=== PATIENT | female | born 1980 ===

== ENCOUNTER 2019-03-29 09:00 | Inpatient (IN) | payer OTHER ==
--- NOTE | 2019-03-29 10:18 | History and Physical Report ---
History of Present Illness Date of examination: 03/29/19 Date of admission: 03/29/2019 Chief complaint: Presents for a scheduled induction of labor due to Preeclampsia. History of present illness: Early entry to care at [facility], 2nd trimester complicated by +Chlamydia (treated with Negative MARIA ELENA). Third trimester complicated by a abnormal 1hour GTT; followed by a normal 3hour GTT. Third trimester also complicated by elevated BPs and PIH. 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 History: chlamydia Family/Genetic History: diabetes (Mother), hypertension (Father) Social history: no significant social history, - Obstetrical History Expected Date of Delivery: 04/19/19 Actual Gestation: 37 Week(s) 0 Day(s) : 6 Para: 4 Hx # Term Pregnancies: 4 Spontaneous Abortions: 1 Number of Living Children: 4 #1 Gender: Female year: 2,[birth year] Birthweight: 3.175 kg Method of Delivery: Vaginal Gestational age at delivery: 40 Complications: none #2 Infant Gender: Female year: 2,[birth year] Birthweight: 3.856 kg Method of Delivery: Vaginal Gestational age at delivery: 40 Complications: none #3 Gender: Female year: 2,007 Birthweight: 3.175 kg Method of Delivery: Vaginal Gestational age at delivery: 40 #4 Gender: Male year: 2,011 Birthweight: 3.175 kg Method of Delivery: Vaginal Gestational age at delivery: 40 Complications: none Medications and Allergies Active Meds: Active Medications Ephedrine Sulfate (Ephedrine Sulfate) 10 mg IV Q2M PRN PRN Reason: Hypotension Oxytocin/Sodium Chloride (Pitocin/Ns 20 Unit/1000ml Drip) 20 units in 1,000 mls @ 125 mls/hr IV DIRECT KAYLYN Lactated Ringer's (Lactated Ringers) 1,000 mls @ 125 mls/hr IV DIRECT KAYLYN Mineral Oil (Mineral Oil) 30 ml PO QHS PRN PRN Reason: Constipation Naloxone HCl (Naloxone) 0.1 mg IV Q2MIN PRN PRN Reason: Res Rate </= 8 or 02 SAT < 92% Terbutaline Sulfate (Brethine) 0.25 mg SUB-Q ONCE PRN PRN Reason: Hyperstimulation/Hypertonicity Terbutaline Sulfate (Brethine) 0.25 mg IVP ONCE PRN PRN Reason: Hyperstimulation/Hypertonicity Review of Systems All systems: negative Constitutional: other (Denies HAs) Eyes: other (Denies Visual Changes) - Vital Signs Vital signs: Vital Signs Pulse BP 67 141/98 03/29/19 09:36 03/29/19 09:36 Temp Pulse Resp BP Pulse Ox 70 143/99 03/29/19 09:41 03/29/19 09:41 - Physical Exam Breasts: Positive: normal Cardiovascular: Regular rate Lungs: Positive: Clear to auscultation, Normal air movement Abdomen: Positive: normal appearance, soft, normal bowel sounds Genitourinary (Female): Positive: normal external genitalia, normal perenium Vagina: Positive: normal moisture Uterus: Positive: enlarged Anus/Rectum: Positive: normal perianal skin - Obstetrical FHR: category 1 Uterine Contraction Monitor Mode: External Cervical Dilatation: 1 (Vtx, Intact) Cervical Effacement Percentage: 20 station: -3 Uterine Contraction Pattern: Regular Uterine Tone Measurement Phase: Resting Uterine Contraction Intensity: Mild Results All other labs normal. Assessment and Plan A: IUP @ 37 Weeks Preeclampsia AMA Category I Tracing GBS Negative P: Admit to L&D per Routine Orders Magnesium Sulfate PIH Labs Cytotec Induction Consult Dr. Lopez
[2019-03-29] MEDS ORDERED: OXYTOCIN 20 UNIT/1000ML DRIP 20 UNITS/1,000 ML BAG IV SCH (11:00)
[2019-03-29] MEDS ORDERED: LIDOCAINE (2%) 20 MG/1 ML VIAL 20 ML MDV INFILTRATI NR (11:00)
[2019-03-29] MEDS ORDERED: MINERAL OIL 30 ML ORAL LIQD PO PRN (11:00)
[2019-03-29 11:02] LABS: Hematocrit 20.5 % (30.3-42.9); Hemoglobin 6.7 gm/dl (10.1-14.3); Mean Corpuscular HGB Conc 33 % (30-34); Mean Corpuscular Volume 88 fl (79-97); Platelet Count 153 K/mm3 (140-440); Red Blood Count 2.35 M/mm3 (3.65-5.03); Red Cell Distribution Width 14.2 % (13.2-15.2)
[2019-03-29] MEDS ORDERED: MAGNESIUM SULFATE 40GM/1000ML 40 GM/1,000 ML BAG IV ONE (11:15)
[2019-03-29] MEDS: LACTATED RINGERS 1,000 ML IV SCH (11:18)
[2019-03-29 11:25] LABS: Alanine Aminotransferase 82 units/L (7-56); Uric Acid 4.2 mg/dL (3.5-7.6)
[2019-03-29] MEDS ORDERED: MAGNESIUM SULFATE 4 GM/100 ML BAG IV ONE (11:30)
[2019-03-29] MEDS ORDERED: miSOPROStol 25 MCG TAB VG ONE (11:30)
[2019-03-29] MEDS ORDERED: NALOXONE 0.4 MG/1 ML INJ IV PRN (11:30)
[2019-03-29] MEDS ORDERED: TERBUTALINE 1 MG/1 ML INJ IVP PRN (11:30)
[2019-03-29] MEDS ORDERED: ONDANSETRON 4 MG/2 ML INJ IV PRN (11:30)
[2019-03-29] MEDS ORDERED: ePHEDrine SULFATE 50 MG/1 ML INJ IV PRN (11:30)
[2019-03-29] MEDS ORDERED: TERBUTALINE 1 MG/1 ML INJ SUB-Q PRN (11:30)
[2019-03-29] MEDS ORDERED: MAGNESIUM SULFATE 40GM/1000ML 40 GM/1,000 ML BAG IV SCH (12:00)
[2019-03-29] MEDS ORDERED: OXYTOCIN DRIP 30 UNITS/500 ML BAG IV SCH (13:00)
[2019-03-29] MEDS ORDERED: DEXMEDETOMIDINE 200 MCG/2 ML VIAL IV ONE (14:20)
--- NOTE | 2019-03-29 14:26 | Progress Note ---
Assessment and Plan A: IUP @ 37 Weeks Preeclampsia AMA Category I Tracing GBS Negative Severe Anemia P: Repeat CBC Jitendra'camacho Arce Fell out AROM Continue Pitocin Induction Continue MagSO4 Subjective - Subjective Date of service: 03/29/19 Interval history: Early entry to care at [facility], 2nd trimester complicated by +Chlamydia (treated with Negative MARIA ELENA). Third trimester complicated by a abnormal 1hour GTT; followed by a normal 3hour GTT. Third trimester also complicated by elevated BPs and PIH. Patient reports: contractions Objective - Vital Signs Vital Signs: Vital Signs - 12hr 03/29/19 03/29/19 03/29/19 09:36 09:39 09:41 Pulse Rate 67 68 70 Blood Pressure 141/98 140/94 143/99 O2 Sat by Pulse Oximetry 03/29/19 03/29/19 03/29/19 10:58 11:13 11:27 Pulse Rate 81 74 74 Blood Pressure 171/101 150/97 144/97 O2 Sat by Pulse Oximetry 03/29/19 03/29/19 03/29/19 11:40 11:41 11:45 Pulse Rate 88 80 85 Blood Pressure 148/111 151/88 148/93 O2 Sat by Pulse Oximetry 03/29/19 03/29/19 03/29/19 11:50 11:55 12:00 Pulse Rate 78 85 84 Blood Pressure 142/92 143/92 137/84 O2 Sat by Pulse Oximetry 03/29/19 03/29/19 03/29/19 12:06 12:10 12:15 Pulse Rate 80 79 85 Blood Pressure 144/84 135/84 145/92 O2 Sat by Pulse Oximetry 03/29/19 03/29/19 03/29/19 12:20 12:25 12:30 Pulse Rate 77 75 77 Blood Pressure 141/82 139/88 125/84 O2 Sat by Pulse Oximetry 03/29/19 03/29/19 03/29/19 12:35 12:40 12:45 Pulse Rate 70 80 71 Blood Pressure 136/89 146/93 136/86 O2 Sat by Pulse Oximetry 03/29/19 03/29/19 03/29/19 12:50 12:57 13:00 Pulse Rate 71 78 72 Blood Pressure 128/85 147/92 144/95 O2 Sat by Pulse Oximetry 03/29/19 03/29/19 03/29/19 13:05 13:11 13:15 Pulse Rate 73 76 76 Blood Pressure 137/89 139/86 139/90 O2 Sat by Pulse Oximetry 03/29/19 03/29/19 03/29/19 13:20 13:27 13:31 Pulse Rate 78 78 80 Blood Pressure 154/92 146/92 142/91 O2 Sat by Pulse Oximetry 03/29/19 03/29/19 03/29/19 13:35 13:40 13:46 Pulse Rate 77 73 92 H Blood Pressure 145/94 140/92 153/91 O2 Sat by Pulse Oximetry 03/29/19 03/29/19 03/29/19 13:52 13:55 14:00 Pulse Rate 85 78 74 Blood Pressure 150/92 O2 Sat by Pulse 98 98 Oximetry 03/29/19 03/29/19 03/29/19 14:05 14:10 14:15 Pulse Rate 86 77 79 Blood Pressure O2 Sat by Pulse 98 98 98 Oximetry 03/29/19 14:20 Pulse Rate 91 H Blood Pressure O2 Sat by Pulse 99 Oximetry - Exam Breasts: normal Cardiovascular: Regular rate Lungs: Clear to auscultation, Normal air movement Abdomen: Present: normal appearance, soft, normal bowel sounds Uterus: Present: normal, firm, fundal height above umbilicus FHR: category 1 Uterine Contraction Monitor Mode: External Cervical Dilatation: 4 (Moderate amount of clear fluid upon AROM at 1350) Cervical Effacement Percentage: 60 station: -2 Uterine Contraction Pattern: Regular Uterine Tone Measurement Phase: Resting Uterine Contraction Intensity: Moderate Extremities: normal - Labs Labs: Abnormal Labs 03/29/19 03/29/19 10:40 10:40 RBC 2.35 L Hgb 6.7 L Hct 20.5 L Creatinine 0.4 L AST 46 H ALT 82 H Lactate Dehydrogenase 228 H Laboratory Results - last 24 hr 03/29/19 03/29/19 03/29/19 10:40 10:40 10:40 WBC 8.9 RBC 2.35 L Hgb 6.7 L Hct 20.5 L MCV 88 MCH 29 MCHC 33 RDW 14.2 Plt Count 153 Creatinine 0.4 L Estimated GFR > 60 Uric Acid 4.2 AST 46 H ALT 82 H Lactate Dehydrogenase 228 H Blood Type B POSITIVE Antibody Screen Negative
[2019-03-29 16:08] LABS: Basophils % (Auto) 0.7 % (0.0-1.8); Eosinophils % (Auto) 0.7 % (0.0-4.3); Hematocrit 33.6 % (30.3-42.9); Hemoglobin 11.3 gm/dl (10.1-14.3); Lymphocytes # (Auto) 1.4 K/mm3 (1.2-5.4); Mean Corpuscular HGB Conc 34 % (30-34); Mean Corpuscular Volume 87 fl (79-97); Monocytes # (Auto) 0.3 K/mm3 (0.0-0.8); Monocytes % (Auto) 4.8 % (0.0-7.3); Platelet Count 118 K/mm3 (140-440); Red Blood Count 3.87 M/mm3 (3.65-5.03); Red Cell Distribution Width 14.4 % (13.2-15.2)
[2019-03-29] MEDS: MAGNESIUM SULFATE 40GM/1000ML 40 GM/1,000 ML BAG IV SCH (19:00)
[2019-03-29] MEDS ORDERED: fentaNYL 100 MCG/2 ML INJ ONE (19:05)
[2019-03-29] MEDS ORDERED: fentaNYL 100 MCG/2 ML INJ IV ONE (19:05)
--- NOTE | 2019-03-29 19:20 | Progress Note ---
Assessment and Plan A: IUP @ 37 Weeks Preeclampsia AMA Category I Tracing GBS Negative P: IUPC placed Continue Pitocin Augmentation Continue MagSO4 Prepare for Epidural Anesthesia Subjective - Subjective Date of service: 03/29/19 Interval history: Early entry to care at [facility], 2nd trimester complicated by +Chlamydia (treated with Negative MARIA ELENA). Third trimester complicated by a abnormal 1hour GTT; followed by a normal 3hour GTT. Third trimester also complicated by elevated BPs and PIH. Patient reports: movement normal, contractions, other (Requesting Epidural Anesthesia) Objective - Vital Signs Vital Signs: Vital Signs - 12hr 03/29/19 03/29/19 03/29/19 09:36 09:39 09:41 Temperature Pulse Rate 67 68 70 Respiratory Rate Blood Pressure 141/98 140/94 143/99 Blood Pressure [Right] O2 Sat by Pulse Oximetry 03/29/19 03/29/19 03/29/19 10:58 11:13 11:27 Temperature Pulse Rate 81 74 74 Respiratory Rate Blood Pressure 171/101 150/97 144/97 Blood Pressure [Right] O2 Sat by Pulse Oximetry 03/29/19 03/29/19 03/29/19 11:40 11:41 11:45 Temperature Pulse Rate 88 80 85 Respiratory Rate Blood Pressure 148/111 151/88 148/93 Blood Pressure [Right] O2 Sat by Pulse Oximetry 03/29/19 03/29/19 03/29/19 11:50 11:55 12:00 Temperature Pulse Rate 78 85 84 Respiratory Rate Blood Pressure 142/92 143/92 137/84 Blood Pressure [Right] O2 Sat by Pulse Oximetry 03/29/19 03/29/19 03/29/19 12:06 12:10 12:15 Temperature Pulse Rate 80 79 85 Respiratory Rate Blood Pressure 144/84 135/84 145/92 Blood Pressure [Right] O2 Sat by Pulse Oximetry 03/29/19 03/29/19 03/29/19 12:20 12:25 12:30 Temperature Pulse Rate 77 75 77 Respiratory Rate Blood Pressure 141/82 139/88 125/84 Blood Pressure [Right] O2 Sat by Pulse Oximetry 03/29/19 03/29/19 03/29/19 12:35 12:40 12:45 Temperature Pulse Rate 70 80 71 Respiratory Rate Blood Pressure 136/89 146/93 136/86 Blood Pressure [Right] O2 Sat by Pulse Oximetry 03/29/19 03/29/19 03/29/19 12:50 12:57 13:00 Temperature Pulse Rate 71 78 72 Respiratory Rate Blood Pressure 128/85 147/92 144/95 Blood Pressure [Right] O2 Sat by Pulse Oximetry 03/29/19 03/29/19 03/29/19 13:05 13:11 13:15 Temperature Pulse Rate 73 76 76 Respiratory Rate Blood Pressure 137/89 139/86 139/90 Blood Pressure [Right] O2 Sat by Pulse Oximetry 03/29/19 03/29/19 03/29/19 13:20 13:27 13:30 Temperature 98.7 F Pulse Rate 78 78 Respiratory Rate Blood Pressure 154/92 146/92 Blood Pressure [Right] O2 Sat by Pulse Oximetry 03/29/19 03/29/19 03/29/19 13:31 13:35 13:40 Temperature Pulse Rate 80 77 73 Respiratory Rate Blood Pressure 142/91 145/94 140/92 Blood Pressure [Right] O2 Sat by Pulse Oximetry 03/29/19 03/29/19 03/29/19 13:46 13:52 13:55 Temperature Pulse Rate 92 H 85 78 Respiratory Rate Blood Pressure 153/91 150/92 Blood Pressure [Right] O2 Sat by Pulse 98 Oximetry 03/29/19 03/29/19 03/29/19 14:00 14:05 14:10 Temperature Pulse Rate 74 86 77 Respiratory Rate Blood Pressure Blood Pressure [Right] O2 Sat by Pulse 98 98 98 Oximetry 03/29/19 03/29/19 03/29/19 14:15 14:20 14:23 Temperature Pulse Rate 79 91 H 81 Respiratory Rate Blood Pressure 129/89 Blood Pressure [Right] O2 Sat by Pulse 98 99 Oximetry 03/29/19 03/29/19 03/29/19 14:25 14:30 14:35 Temperature Pulse Rate 77 78 77 Respiratory Rate Blood Pressure Blood Pressure [Right] O2 Sat by Pulse 98 98 98 Oximetry 03/29/19 03/29/19 03/29/19 14:40 14:45 14:50 Temperature Pulse Rate 79 77 78 Respiratory Rate Blood Pressure Blood Pressure [Right] O2 Sat by Pulse 98 99 98 Oximetry 03/29/19 03/29/19 03/29/19 14:52 14:55 15:00 Temperature Pulse Rate 75 77 79 Respiratory Rate Blood Pressure 140/89 Blood Pressure [Right] O2 Sat by Pulse 99 99 Oximetry 03/29/19 03/29/19 03/29/19 15:05 15:10 15:15 Temperature Pulse Rate 73 74 72 Respiratory Rate Blood Pressure Blood Pressure [Right] O2 Sat by Pulse 97 98 98 Oximetry 03/29/19 03/29/19 03/29/19 15:20 15:23 15:25 Temperature Pulse Rate 81 72 74 Respiratory Rate Blood Pressure 130/78 Blood Pressure [Right] O2 Sat by Pulse 99 98 Oximetry 03/29/19 03/29/19 03/29/19 15:30 15:35 15:40 Temperature Pulse Rate 77 75 71 Respiratory Rate Blood Pressure Blood Pressure [Right] O2 Sat by Pulse 98 98 98 Oximetry 03/29/19 03/29/19 03/29/19 15:45 15:50 15:53 Temperature Pulse Rate 87 73 73 Respiratory Rate Blood Pressure 121/79 Blood Pressure [Right] O2 Sat by Pulse 99 96 94 Oximetry 03/29/19 03/29/19 03/29/19 15:55 16:00 16:05 Temperature Pulse Rate 71 76 84 Respiratory Rate Blood Pressure Blood Pressure [Right] O2 Sat by Pulse 98 97 98 Oximetry 03/29/19 03/29/19 03/29/19 16:10 16:15 16:20 Temperature Pulse Rate 84 79 67 Respiratory Rate Blood Pressure Blood Pressure [Right] O2 Sat by Pulse 97 98 98 Oximetry 03/29/19 03/29/19 03/29/19 16:21 16:22 16:25 Temperature Pulse Rate 69 69 72 Respiratory Rate Blood Pressure 122/76 Blood Pressure [Right] O2 Sat by Pulse 94 96 Oximetry 03/29/19 03/29/19 03/29/19 16:30 16:35 16:40 Temperature Pulse Rate 79 73 76 Respiratory Rate Blood Pressure Blood Pressure [Right] O2 Sat by Pulse 96 97 95 Oximetry 03/29/19 03/29/19 03/29/19 16:45 16:50 16:52 Temperature Pulse Rate 69 86 65 Respiratory Rate Blood Pressure 112/72 Blood Pressure [Right] O2 Sat by Pulse 98 99 94 Oximetry 03/29/19 03/29/19 03/29/19 16:55 17:00 17:05 Temperature Pulse Rate 69 80 74 Respiratory Rate Blood Pressure Blood Pressure [Right] O2 Sat by Pulse 97 97 97 Oximetry 03/29/19 03/29/19 03/29/19 17:10 17:15 17:20 Temperature Pulse Rate 77 81 82 Respiratory Rate Blood Pressure Blood Pressure [Right] O2 Sat by Pulse 98 97 98 Oximetry 03/29/19 03/29/19 03/29/19 17:22 17:23 17:25 Temperature Pulse Rate 71 77 75 Respiratory Rate Blood Pressure 121/75 Blood Pressure [Right] O2 Sat by Pulse 92 96 Oximetry 03/29/19 03/29/19 03/29/19 17:30 17:33 17:34 Temperature 98.0 F Pulse Rate 76 75 72 Respiratory 18 Rate Blood Pressure 117/72 Blood Pressure 117/72 [Right] O2 Sat by Pulse 97 98 Oximetry 03/29/19 03/29/19 03/29/19 17:35 17:40 17:45 Temperature Pulse Rate 77 90 75 Respiratory Rate Blood Pressure Blood Pressure [Right] O2 Sat by Pulse 97 98 98 Oximetry 03/29/19 03/29/19 03/29/19 17:50 17:52 17:55 Temperature Pulse Rate 79 69 77 Respiratory Rate Blood Pressure 118/77 Blood Pressure [Right] O2 Sat by Pulse 97 96 Oximetry 03/29/19 03/29/19 03/29/19 18:00 18:05 18:10 Temperature Pulse Rate 75 74 82 Respiratory Rate Blood Pressure Blood Pressure [Right] O2 Sat by Pulse 97 96 98 Oximetry 03/29/19 03/29/19 03/29/19 18:15 18:20 18:23 Temperature Pulse Rate 83 74 76 Respiratory Rate Blood Pressure 125/80 Blood Pressure [Right] O2 Sat by Pulse 97 97 93 Oximetry 03/29/19 03/29/19 03/29/19 18:25 18:30 18:35 Temperature Pulse Rate 82 77 75 Respiratory Rate Blood Pressure Blood Pressure [Right] O2 Sat by Pulse 98 96 96 Oximetry 03/29/19 03/29/19 03/29/19 18:40 18:42 18:45 Temperature Pulse Rate 86 77 79 Respiratory Rate Blood Pressure Blood Pressure [Right] O2 Sat by Pulse 98 90 98 Oximetry 03/29/19 03/29/19 03/29/19 18:50 18:52 18:55 Temperature Pulse Rate 80 87 85 Respiratory Rate Blood Pressure 137/88 Blood Pressure [Right] O2 Sat by Pulse 87 100 Oximetry 03/29/19 03/29/19 03/29/19 19:00 19:05 19:10 Temperature Pulse Rate 85 82 82 Respiratory Rate Blood Pressure Blood Pressure [Right] O2 Sat by Pulse 97 97 98 Oximetry 03/29/19 03/29/19 19:12 19:15 Temperature Pulse Rate 76 85 Respiratory Rate Blood Pressure Blood Pressure [Right] O2 Sat by Pulse 94 92 Oximetry - Exam Breasts: normal Cardiovascular: Regular rate Lungs: Clear to auscultation, Normal air movement Abdomen: Present: normal appearance, soft, normal bowel sounds Uterus: Present: normal, firm, fundal height above umbilicus FHR: category 1 Uterine Contraction Monitor Mode: Internal Cervical Dilatation: 7 (leaking a moderate amount of clear fluid) Cervical Effacement Percentage: 80 station: -1 Uterine Contraction Pattern: Regular Uterine Tone Measurement Phase: Resting Uterine Contraction Intensity: Strong/Firm Extremities: normal - Labs Labs: Abnormal Labs 03/29/19 03/29/19 03/29/19 10:40 10:40 15:24 RBC 2.35 L Hgb 6.7 L Hct 20.5 L Plt Count 118 L Seg Neutrophils % 71.8 H Creatinine 0.4 L AST 46 H ALT 82 H Lactate Dehydrogenase 228 H Laboratory Results - last 24 hr 03/29/19 03/29/19 03/29/19 10:40 10:40 10:40 WBC 8.9 RBC 2.35 L Hgb 6.7 L Hct 20.5 L MCV 88 MCH 29 MCHC 33 RDW 14.2 Plt Count 153 Lymph % (Auto) [place] % (Auto) Eos % (Auto) Baso % (Auto) Lymph # [place] # Eos # Baso # Seg Neutrophils % Seg Neutrophils # Creatinine 0.4 L Estimated GFR > 60 Uric Acid 4.2 AST 46 H ALT 82 H Lactate Dehydrogenase 228 H Blood Type B POSITIVE Antibody Screen Negative 03/29/19 15:24 WBC 6.5 RBC 3.87 Hgb 11.3 D Hct 33.6 D MCV 87 MCH 29 MCHC 34 RDW 14.4 Plt Count 118 L Lymph % (Auto) 22.0 [place] % (Auto) 4.8 Eos % (Auto) 0.7 Baso % (Auto) 0.7 Lymph # 1.4 [place] # 0.3 Eos # 0.0 Baso # 0.0 Seg Neutrophils % 71.8 H Seg Neutrophils # 4.7 Creatinine Estimated GFR Uric Acid AST ALT Lactate Dehydrogenase Blood Type Antibody Screen
--- NOTE | 2019-03-29 20:11 | Anesthesia Consultation ---
Anesthesia Consult and Med Hx Date of service: 03/29/19 - Airway Anesthetic Teeth Evaluation: Good ROM Head & Neck: Adequate Mental/Hyoid Distance: Adequate Mallampati Class: Class II Intubation Access Assessment: Probably Good - Pulmonary Exam CTA: Yes - Cardiac Exam Cardiac Exam: RRR - Pre-Operative Health Status ASA Pre-Surgery Classification: ASA3 Proposed Anesthetic Plan: Epidural - Pulmonary Hx Smoking: No Hx Asthma: No Hx Respiratory Symptoms: No SOB: No COPD: No Home Oxygen Therapy: No Hx Pneumonia: No Hx Sleep Apnea: No - Cardiovascular System Hx Hypertension: Yes (PIH) Hx Coronary Artery Disease: No Hx Heart Attack/AMI: No Hx Angina: No Hx Percutaneous Transluminal Coronary Angioplasty (PTCA): No Hx Cardia Arrhythmia: No Hx Pacemaker: No Hx Internal Defibrillator: No Hx Valvular Heart Disease: No Hx Heart Murmur: No Hx Peripheral Vascular Disease: No - Central Nervous System Hx Neuromuscular Disorder: No Hx Seizures: No CVA: No Hx Back Pain: No Hx Psychiatric Problems: No - Gastrointestinal Hx Ulcer: No Hx Gastroesophageal Reflux Disease: No - Endocrine Hx Renal Disease: No Hx End Stage Renal Disease: No Hx Cirrhosis: No Hx Liver Disease: No Hx Insulin Dependent Diabetes: No Hx Non-Insulin Dependent Diabetes: No Hx Thyroid Disease: No Hx Hypothyroidism: No Hx Hyperthyroidism: No - Hematic Hx Anemia: No Hx Sickle Cell Disease: No - Other Systems Hx Alcohol Use: No Hx Substance Use: No Hx Cancer: No Hx Obesity: Yes (BMI 31.1) - Additional Comments Anesthesia Medical History Comments: PSH: DENIES
[2019-03-29 20:13] LABS: Hematocrit 35.7 % (30.3-42.9); Hemoglobin 11.6 gm/dl (10.1-14.3); Mean Corpuscular HGB Conc 33 % (30-34); Mean Corpuscular Volume 87 fl (79-97); Platelet Count 119 K/mm3 (140-440); Red Blood Count 4.09 M/mm3 (3.65-5.03); Red Cell Distribution Width 14.7 % (13.2-15.2)
[2019-03-29] MEDS ORDERED: LANOLIN/ZINC/DIMETHICONE (LANSINOH) 7 GM TP PRN (20:13)
[2019-03-29] MEDS ORDERED: diphenhydrAMINE 25 MG CAP PO PRN (20:13)
--- NOTE | 2019-03-29 20:23 | Procedure Note ---
OB Delivery Note - Delivery Date of Delivery: 03/29/19 (1944) Surgeon: KATEY CUTLER Estimated blood loss: 200cc - Vaginal Delivery presentation: vertex Delivery position: OA Intrapartum events: preeclampsia Delivery induction: other (Cook's Cervical Ripening Balloon) Delivery augmentation: pitocin Delivery monitor: external FHT, internal uterine Route of delivery: Delivery placenta: spontaneous Delivery cord: 3 umbilical vessels Episiotomy: none Delivery laceration: 1st degree Delivery repair: vicryl Anesthesia: local Delivery comments: of a live 6'11 male infant over a first degree perineal laceration under IV pain control with Apgars of 8 and 9 at 1946 on 03/29/2019. Infant directly to maternal abd/chest, skin to skin contact. Spontaneous delivery of placenta complete and intact with Pena side presenting at 1946. Fundus is firm and midline located 4 below the U. Lochia is scant. Perineal laceration repaired with 2-0 Vicryl on a SH under local 2% Lidocaine. Delayed cord clamping and cutting; Cord cut by Father of the Baby. Placenta discarded. To Continue MagSO4 x 24 hours. - A at 1 minute: 8 at 5 minutes: 9 Gender: Male (6'11)
[2019-03-29] MEDS: HYDROcodone/ACETAMINOPHEN 5-325 MG TAB PO PRN (20:35)
[2019-03-29] MEDS ORDERED: IBUPROFEN 600 MG TAB PO SCH (21:00)
[2019-03-30] MEDS: HYDROcodone/ACETAMINOPHEN 5-325 MG TAB PO PRN (02:07)
[2019-03-30] MEDS: LACTATED RINGERS 1,000 ML IV SCH (07:05)
[2019-03-30] MEDS: MAGNESIUM SULFATE 40GM/1000ML 40 GM/1,000 ML BAG IV SCH (07:06)
[2019-03-30 07:36] LABS: Bacteria,Urine 1+ /HPF (Negative); Bilirubin,Urine NEG (Negative); Blood,Urine NEG (Negative); Color,Urine Yellow (Yellow); Urobilinogen,Urine < 2.0 mg/dL (<2.0)
[2019-03-30 08:44] LABS: Hematocrit 33.4 % (30.3-42.9)
--- NOTE | 2019-03-30 10:46 | Progress Note ---
Assessment and Plan A: PP Day #1 Preeclampsia P: Follow Routine Orders Continue MagSO4 until 24 hours Postpatum Routine Magnesium Precautions Subjective - Subjective Date of service: 03/30/19 Interval history: Early entry to care at [facility], 2nd trimester complicated by +Chlamydia (treated with Negative MARIA ELENA). Third trimester complicated by a abnormal 1hour GTT; followed by a normal 3hour GTT. Third trimester also complicated by elevated BPs and PIH. Patient reports: appetite normal, voiding normally (Cro[place] in Place), pain well controlled, other (MagSO4 is taking her feel a little dizzy) [place]: doing well, bottle feeding Objective - Vital Signs Latest vital signs: Vital Signs Temp Pulse Resp BP BP Pulse Ox 03/30/19 10:42 76 98 03/30/19 10:41 71 114/76 03/30/19 10:37 71 99 03/30/19 10:30 74 98 03/30/19 10:25 73 96 03/30/19 10:20 72 98 03/30/19 10:15 70 97 03/30/19 10:11 63 116/75 03/30/19 10:10 67 97 03/30/19 10:05 64 98 03/30/19 10:00 65 97 03/30/19 09:55 69 97 03/30/19 09:50 68 97 03/30/19 09:45 76 98 03/30/19 09:41 82 129/90 03/30/19 09:40 77 98 03/30/19 09:35 74 99 03/30/19 09:30 70 98 03/30/19 09:25 69 98 03/30/19 09:23 57 L 79 L 03/30/19 09:19 66 98 03/30/19 09:14 66 97 03/30/19 09:09 74 99 03/30/19 09:04 84 98 03/30/19 08:59 82 98 03/30/19 08:54 78 98 03/30/19 08:49 68 98 03/30/19 08:44 64 98 03/30/19 08:41 62 104/68 03/30/19 08:39 72 98 03/30/19 08:34 73 99 03/30/19 08:29 69 99 03/30/19 08:24 67 98 03/30/19 08:19 66 99 03/30/19 08:14 68 98 03/30/19 08:11 66 129/87 03/30/19 08:09 71 99 03/30/19 08:04 69 99 03/30/19 07:59 73 98 03/30/19 07:54 69 98 03/30/19 07:49 69 99 03/30/19 07:43 74 99 03/30/19 07:39 72 138/93 03/30/19 07:38 74 99 03/30/19 07:33 73 99 03/30/19 07:28 77 99 03/30/19 07:25 77 145/93 03/30/19 07:24 75 99 03/30/19 07:18 69 98 03/30/19 07:13 66 98 03/30/19 07:10 65 120/80 03/30/19 07:08 67 98 03/30/19 07:06 68 119/81 03/30/19 07:04 70 120/80 03/30/19 07:03 68 120/80 98 03/30/19 03:07 67 119/81 97 03/30/19 02:07 18 03/30/19 01:51 98.2 F 77 18 134/81 96 03/30/19 01:50 82 134/81 96 03/29/19 22:10 76 138/85 03/29/19 21:55 70 147/87 03/29/19 21:40 80 160/91 03/29/19 21:35 18 03/29/19 21:25 72 128/75 03/29/19 21:10 81 141/78 03/29/19 20:55 79 146/99 03/29/19 20:41 84 153/97 03/29/19 20:40 88 153/94 03/29/19 20:35 18 03/29/19 20:25 81 134/88 03/29/19 20:10 86 127/85 03/29/19 20:08 20 03/29/19 19:52 91 H 127/83 03/29/19 19:46 81 98 03/29/19 19:41 78 98 03/29/19 19:36 86 97 03/29/19 19:30 88 98 03/29/19 19:25 83 98 03/29/19 19:22 75 139/85 03/29/19 19:20 86 97 03/29/19 19:15 85 92 03/29/19 19:12 76 94 03/29/19 19:10 82 98 03/29/19 19:05 82 97 03/29/19 19:00 85 97 03/29/19 18:55 85 100 03/29/19 18:52 87 137/88 03/29/19 18:50 80 87 03/29/19 18:45 79 98 03/29/19 18:42 77 90 03/29/19 18:40 86 98 03/29/19 18:35 75 96 03/29/19 18:30 77 96 03/29/19 18:25 82 98 03/29/19 18:23 76 125/80 93 03/29/19 18:20 74 97 03/29/19 18:15 83 97 03/29/19 18:10 82 98 03/29/19 18:05 74 96 03/29/19 18:00 75 97 03/29/19 17:55 77 96 03/29/19 17:52 69 118/77 03/29/19 17:50 79 97 03/29/19 17:45 75 98 03/29/19 17:40 90 98 03/29/19 17:35 77 97 03/29/19 17:34 72 117/72 03/29/19 17:33 98.0 F 75 18 117/72 98 03/29/19 17:30 76 97 03/29/19 17:25 75 96 03/29/19 17:23 77 92 03/29/19 17:22 71 121/75 03/29/19 17:20 82 98 03/29/19 17:15 81 97 03/29/19 17:10 77 98 03/29/19 17:05 74 97 03/29/19 17:00 80 97 03/29/19 16:55 69 97 03/29/19 16:52 65 112/72 94 03/29/19 16:50 86 99 03/29/19 16:45 69 98 03/29/19 16:40 76 95 03/29/19 16:35 73 97 03/29/19 16:30 79 96 03/29/19 16:25 72 96 03/29/19 16:22 69 122/76 12/11/19 16:21 69 94 03/29/19 16:20 67 98 03/29/19 16:15 79 98 03/29/19 16:10 84 97 03/29/19 16:05 84 98 03/29/19 16:00 76 97 03/29/19 15:55 71 98 03/29/19 15:53 73 121/79 94 03/29/19 15:50 73 96 03/29/19 15:45 87 99 03/29/19 15:40 71 98 03/29/19 15:35 75 98 03/29/19 15:30 77 98 03/29/19 15:25 74 98 03/29/19 15:23 72 130/78 03/29/19 15:20 81 99 03/29/19 15:15 72 98 03/29/19 15:10 74 98 03/29/19 15:05 73 97 03/29/19 15:00 79 99 03/29/19 14:55 77 99 03/29/19 14:52 75 140/89 03/29/19 14:50 78 98 03/29/19 14:45 77 99 03/29/19 14:40 79 98 03/29/19 14:35 77 98 03/29/19 14:30 78 98 03/29/19 14:25 77 98 03/29/19 14:23 81 129/89 03/29/19 14:20 91 H 99 03/29/19 14:15 79 98 03/29/19 14:10 77 98 03/29/19 14:05 86 98 03/29/19 14:00 74 98 03/29/19 13:55 78 98 03/29/19 13:52 85 150/92 03/29/19 13:46 92 H 153/91 03/29/19 13:40 73 140/92 03/29/19 13:35 77 145/94 03/29/19 13:31 80 142/91 03/29/19 13:30 98.7 F 03/29/19 13:27 78 146/92 03/29/19 13:20 78 154/92 03/29/19 13:15 76 139/90 03/29/19 13:11 76 139/86 03/29/19 13:05 73 137/89 03/29/19 13:00 72 144/95 03/29/19 12:57 78 147/92 03/29/19 12:50 71 128/85 03/29/19 12:45 71 136/86 03/29/19 12:40 80 146/93 03/29/19 12:35 70 136/89 03/29/19 12:30 77 125/84 03/29/19 12:25 75 139/88 03/29/19 12:20 77 141/82 03/29/19 12:15 85 145/92 03/29/19 12:10 79 135/84 03/29/19 12:06 80 144/84 03/29/19 12:00 84 137/84 03/29/19 11:55 85 143/92 03/29/19 11:50 78 142/92 03/29/19 11:45 85 148/93 03/29/19 11:41 80 151/88 03/29/19 11:40 88 148/111 03/29/19 11:27 74 144/97 03/29/19 11:13 74 150/97 03/29/19 10:58 81 171/101 Intake and Output 03/29/19 03/30/19 03/30/19 22:59 06:59 14:59 Intake Total 1000 605 Output Total 650 1350 900 Balance 350 -1350 -295 Intake: IV 1000 605 Lactated Ringers 1,000 ml 1000 @ 125 mls/hr IV DIRECT KAYLYN Rx#:[id number] MAGNESIUM SULFATE 40GM/ 605 1000ML 40 gm In 1,000 ml @ 2 GM/HR 50 mls/hr IV DIRECT KAYLYN Rx#:[id number] Output: Urine 650 1350 900 Indwelling Catheter 650 1350 900 Other: Total, Output Amount 650 400 900 - Exam Breasts: Present: normal Cardiovascular: Present: Regular rate Lungs: Present: Clear to auscultation, Normal air movement Abdomen: Present: normal appearance, soft, normal bowel sounds Uterus: Present: normal, firm, fundal height below umbilicus Extremities: Present: normal - Labs Labs: Abnormal lab results 03/29/19 03/29/19 03/29/19 Range/Units 10:40 10:40 15:24 WBC (4.5-11.0) K/mm3 RBC 2.35 L (3.65-5.03) M/mm3 Hgb 6.7 L (10.1-14.3) gm/dl Hct 20.5 L (30.3-42.9) % Plt Count 118 L (140-440) K/mm3 Seg Neutrophils % 71.8 H (40.0-70.0) % Creatinine 0.4 L (0.7-1.2) mg/dL Magnesium (1.7-2.3) mg/dL AST 46 H (5-40) units/L ALT 82 H (7-56) units/L Lactate Dehydrogenase 228 H (91-180) units/L 03/29/19 03/30/19 Range/Units 19:35 09:37 WBC 13.6 H (4.5-11.0) K/mm3 RBC (3.65-5.03) M/mm3 Hgb (10.1-14.3) gm/dl Hct (30.3-42.9) % Plt Count 119 L (140-440) K/mm3 Seg Neutrophils % (40.0-70.0) % Creatinine (0.7-1.2) mg/dL Magnesium 6.10 H (1.7-2.3) mg/dL AST (5-40) units/L ALT (7-56) units/L Lactate Dehydrogenase (91-180) units/L
[2019-03-30] MEDS: PRENATAL VIT27-FE FUMARATE-FOLIC ACID VIT TAB PO SCH (11:00)
[2019-03-30] MEDS ORDERED: MEASLES, MUMPS & RUBELLA 12,500 UNIT/0.5 ML VACCINE SUB-Q ONE (20:13)
[2019-03-31] MEDS: HYDROcodone/ACETAMINOPHEN 5-325 MG TAB PO PRN ×2 (00:28→12:28)
[2019-03-31] MEDS ORDERED: TETANUS,DIPH,PERTUSS(ACELL) VACCINE 0.5 ML SYRINGE IM ONE (06:00)
[2019-03-31] MEDS: PRENATAL VIT27-FE FUMARATE-FOLIC ACID VIT TAB PO SCH (10:20)
--- NOTE | 2019-03-31 19:22 | Progress Note ---
Assessment and Plan A: day 2 S/P spontaneous vaginal delivery. Preeclampsia. Heart murmur (asymptomatic and patient was not aware). P: If patient continues to do well, anticipate discharge tomorrow. Patient wants to see cardiology as an outpatient after she is discharged. Subjective - Subjective Date of service: 03/31/19 Principal diagnosis: day 2 S/P ; preeclampsia Interval history: day 2 S/P spontaneous vaginal delivery; preeclampsia. Bottlefeeding. Patient reports small amount of lochia. Patient is voiding without difficulty, ambulating well, tolerating a regular diet without nausea or vomiting. Patient denies chest pain, cough, shortness of breath, visual disturbance, nausea or vomiting, abdominal or epigastric pain, or swelling. Patient reports: appetite normal, voiding normally, pain well controlled, flatus, ambulating normally, no dizzy ambulation, no nauseated : doing well Objective - Vital Signs Latest vital signs: Vital Signs Temp Pulse Resp BP BP Pulse Ox 03/31/19 16:30 98.2 F 71 18 138/88 03/31/19 08:12 98.4 F 67 18 134/79 03/31/19 01:15 99.1 F 74 16 126/79 96 Intake and Output 03/31/19 03/31/19 03/31/19 07:59 15:59 23:59 Intake Total 600 480 480 Balance 600 480 480 Intake: Oral 480 480 Intake, Free Water 600 Other: Total, Intake Amount 480 480 # Voids Void 1 - Exam Breasts: Present: deferred, normal Cardiovascular: Present: Regular rate, Normal S1, Normal S2, Other (murmur heard) Abdomen: Present: normal appearance, soft. Absent: distention, tenderness, guarding Uterus: Present: normal, firm, fundal height below umbilicus. Absent: bogginess, tenderness, other Extremities: Absent: tenderness, edema
--- NOTE | 2019-04-01 11:36 | Progress Note ---
Assessment and Plan A: day 3 S/P . Preeclampsia. Elevated blood pressure. Heart murmur. P: Repeat labs. Start po Labetalol. Monitor BPs. Subjective - Subjective Date of service: 04/01/19 Principal diagnosis: day 3 S/P ; preeclampsia Interval history: day 3 S/P and preeclampsia. Baby is in NICU. Patient reports small amount of lochia. Patient is voiding without difficulty, ambulating well, tolerating a regular diet. Patient denies headache, chest pain, shortness of breath, cough, dizziness, leg pain, abdominal pain, nausea, or heavy bleeding. BP elevated this morning; repeat BP 159/96. Will start Labetalol po. Patient reports: appetite normal, voiding normally, pain well controlled, flatus, ambulating normally, no dizzy ambulation, no nauseated [place]: in NICU Objective - Vital Signs Latest vital signs: Vital Signs Temp Pulse Resp BP BP Pulse Ox 04/01/19 07:39 98.1 F 72 20 148/94 97 03/31/19 23:58 98.2 F 79 20 137/85 97 03/31/19 16:30 98.2 F 71 18 138/88 Intake and Output 03/31/19 04/01/19 04/01/19 23:59 07:59 15:59 Intake Total 720 Balance 720 Intake: Oral 720 Other: Total, Intake Amount 240 # Voids Void 1 1 - Exam Cardiovascular: Present: Regular rate, Normal S1, Normal S2, Other (murmur heard) Lungs: Present: Clear to auscultation Abdomen: Present: normal appearance, soft. Absent: distention, tenderness, guarding, rigidity Uterus: Present: normal, firm, fundal height below umbilicus. Absent: bogginess, tenderness Extremities: Present: normal, edema (mild pedal edema bilaterally). Absent: tenderness
[2019-04-01] MEDS: PRENATAL VIT27-FE FUMARATE-FOLIC ACID VIT TAB PO SCH (12:14)
[2019-04-01 14:35] LABS: Hematocrit 33.3 % (30.3-42.9); Mean Corpuscular HGB Conc 33 % (30-34); Mean Corpuscular Volume 88 fl (79-97); Platelet Count 170 K/mm3 (140-440)
[2019-04-01 14:56] LABS: Alanine Aminotransferase 128 units/L (7-56); Albumin 2.9 g/dL (3.9-5); BUN/Creatinine Ratio 24; Blood Urea Nitrogen 12 mg/dL (7-17); Calcium 8.7 mg/dL (8.4-10.2); Hemolysis Index 6; Uric Acid 5.6 mg/dL (3.5-7.6)
--- NOTE | 2019-04-01 17:52 | Event Note ---
Date: 04/01/19 Platelet count within normal limits. AST, ALT elevated. Consulted with Dr. Elder re: patient's lab results and elevated blood pressures. Dr. Lily aglloway states to keep patient another night as inpatient in mother baby unit.
[2019-04-02] MEDS: HYDROcodone/ACETAMINOPHEN 5-325 MG TAB PO PRN ×2 (05:31→13:51)
[2019-04-02] MEDS: PRENATAL VIT27-FE FUMARATE-FOLIC ACID VIT TAB PO SCH (09:45)
--- NOTE | 2019-04-02 12:39 | Progress Note ---
Assessment and Plan A: day 4 S/P ; preeclampsia. Heart murmur. P: Repeat AST, ALT today. Continue PO Labetalol. Subjective - Subjective Date of service: 04/02/19 Principal diagnosis: day 4 S/P ; preeclampsia Interval history: day 4 S/P and preeclampsia. Baby is in NICU. Patient reports small amount of lochia. Patient is voiding without difficulty, ambulating well, tolerating a regular diet. Patient denies headache, chest pain, shortness of breath, cough, dizziness, fatigue, leg pain, abdominal pain, nausea, or heavy bleeding. BPs are better on PO Labetalol. Repeat AST, ALT ordered. Patient reports: appetite normal, voiding normally, pain well controlled, flatus, ambulating normally, no dizzy ambulation, no nauseated : doing well, in NICU Objective - Vital Signs Latest vital signs: Vital Signs Temp Pulse Resp BP Pulse Ox 04/02/19 12:09 98.6 F 85 18 128/86 93 04/02/19 09:45 82 135/81 04/02/19 07:36 98.6 F 76 18 135/83 93 04/02/19 05:31 18 04/02/19 04:50 98.6 F 70 20 141/85 95 04/02/19 00:32 98.5 F 75 20 142/86 94 04/01/19 21:45 141/82 04/01/19 21:43 72 141/82 04/01/19 19:45 98.7 F 69 20 128/78 96 04/01/19 16:15 98.6 F 71 20 146/94 97 Intake and Output 04/01/19 04/02/19 04/02/19 23:59 07:59 15:59 Intake Total 600 120 Balance 600 120 Intake: Oral 600 120 Other: Total, Intake Amount 120 120 # Voids Void 1 1 - Exam Cardiovascular: Present: Regular rate, Normal S1, Normal S2, Other (Murmur heard) Lungs: Present: Clear to auscultation Abdomen: Present: normal appearance, soft. Absent: distention, tenderness, guarding, rigidity Uterus: Present: normal, firm, fundal height below umbilicus. Absent: bogginess, tenderness Extremities: Present: normal. Absent: tenderness, edema - Labs Labs: Abnormal lab results 04/01/19 Range/Units 14:02 Carbon Dioxide 19 L (22-30) mmol/L Creatinine 0.5 L (0.7-1.2) mg/dL AST 101 H (5-40) units/L ALT 128 H (7-56) units/L Lactate Dehydrogenase 289 H (91-180) units/L Albumin 2.9 L (3.9-5) g/dL
[2019-04-02 14:46] LABS: Alanine Aminotransferase 312 units/L (7-56)
--- NOTE | 2019-04-03 08:58 | Progress Note ---
Assessment and Plan A: day 5 S/P . Preeclampsia; elevated LFTs/normal platelets. Heart murmur. P: Repeat LFTs. Dr. Lopez to determine further management and timing of discharge. Spoke with Dr. Lopez re: this patient. Subjective - Subjective Date of service: 04/03/19 Principal diagnosis: day 5 S/P ; preeclampsia Interval history: day 5 S/P and preeclampsia. Baby is in NICU. Patient reports small amount of lochia. Patient is voiding without difficulty, ambulating well, tolerating a regular diet. Patient denies headache, chest pain, shortness of breath, cough, dizziness, fatigue, leg pain, abdominal pain, nausea, or heavy bleeding. BPs are better on PO Labetalol. Repeat LFTs have been ordered by Dr. Lopez and Dr. Lopez is aware of previous labs. Patient reports: appetite normal, voiding normally, pain well controlled, flatus, ambulating normally, no dizzy ambulation, no nauseated [place]: doing well Objective - Vital Signs Latest vital signs: Vital Signs Temp Pulse Resp BP Pulse Ox 04/03/19 06:28 98.3 F 80 16 123/71 99 04/03/19 00:17 98.5 F 74 18 132/72 97 04/02/19 21:56 76 141/86 04/02/19 21:32 98.9 F 76 18 141/86 97 04/02/19 15:45 98.9 F 73 18 120/66 94 04/02/19 12:09 98.6 F 85 18 128/86 93 04/02/19 09:45 82 135/81 Intake and Output 04/02/19 04/03/19 04/03/19 23:59 07:59 15:59 Intake Total 480 480 Balance 480 480 Intake: Intake, Free Water 480 480 Other: # Voids Indwelling Catheter 2 Void 2 1 - Exam Cardiovascular: Present: Regular rate, Normal S1, Normal S2, Other (murmur heard) Lungs: Present: Clear to auscultation Abdomen: Present: normal appearance, soft. Absent: distention, tenderness, guarding, rigidity Uterus: Present: normal, firm, fundal height below umbilicus. Absent: bogginess, tenderness Extremities: Present: normal. Absent: tenderness, edema - Labs Labs: Abnormal lab results 04/02/19 Range/Units 13:58 AST 204 H (5-40) units/L ALT 312 H (7-56) units/L
[2019-04-03 10:03] LABS: Alanine Aminotransferase 280 units/L (7-56); Albumin 2.8 g/dL (3.9-5)
[2019-04-03 10:06] LABS: Bilirubin,Direct < 0.2 mg/dL (0-0.2)
[2019-04-03] MEDS: PRENATAL VIT27-FE FUMARATE-FOLIC ACID VIT TAB PO SCH (10:11)
--- NOTE | 2019-04-03 16:43 | Event Note ---
Date: 04/03/19 No complaints. Pt feels good and wants to go home. LFTs repeated today and are still elevated but improved. Exam Heart- RRR A/P- stable to go home. RTO 1 week and repeat LFTs at that visit.
[2019-04-03 18:16] VITALS: BP 129/87
--- NOTE | 2019-04-07 17:21 | Discharge Summary ---
Providers - Providers Date of Admission: 03/29/19 10:05 Attending physician: SEBASTIAN RAMOS 04/01/19 07:36 Consult to Case Management [CONS] Urgent Services Needed at Discharge: Geneticist Notified:: No Additional Physician Instructions: Baby in NICU Primary care physician: SEBASTIAN RAMOS Hospitalization Reason for admission: induction of labor (preeclampsia) Delivery: Laceration: 1st degree complications: other (elevated LFTS but were improving prior to d/c. AST/ALT 133/280 at last check. Needs repeat LFTs in 1 week) Discharge diagnosis: IUP at term delivered Condition at discharge: Stable Disposition: DC-01 TO HOME OR SELFCARE Plan - Discharge Medications Prescriptions: labetaloL [Labetalol 100mg TAB] 100 mg PO BID #90 tablet Ibuprofen [Motrin 600 MG tab] 600 mg PO Q6H PRN #30 tablet PRN Reason: Pain - Provider Discharge Summary Additional instructions: [] Smoking cessation referral if applicable(refer to patient education folder for contact #) [] Refer to [facility]'s [facility] Booklet Call your doctor immediately for: * Fever > 100.5 * Heavy vaginal bleeding ( >1 pad per hour) * Severe persistent headache * Shortness of breath * Reddened, hot, painful area to leg or breast * Drainage or odor from incision. * Keep incision clean and dry at all times and follow doctor's instructions regarding bathing/showering - Follow up plan Follow up: SEBASTIAN RAMOS MD [Primary Care Provider] - 7 Days Forms: [facility] Discharge Summary
== END 2019-04-03 18:20 | disposition home or self-care (01) | DRG 807 ==
LOC: TRG 09:00 → LD 09:01 → TRG 10:05 → OB 03-30 13:58
PROVIDERS: ADMIT Obstetrics & Gynecology; ATTEND Obstetrics & Gynecology
PROC: 10E0XZZ Delivery of Products of Conception, External Approach (ICD-10-PCS; principal; 2019-03-29)
PROC: 0U7C7ZZ Dilation of Cervix, Via Natural or Artificial Opening (ICD-10-PCS; 2019-03-29)
PROC: 10907ZC Drainage of Amniotic Fluid, Therapeutic from Products of Conception, Via Natural or Artificial Opening (ICD-10-PCS; 2019-03-29)
PROC: 10H07YZ Insertion of Other Device into Products of Conception, Via Natural or Artificial Opening (ICD-10-PCS; 2019-03-29)
PROC: 0HQ9XZZ Repair Perineum Skin, External Approach (ICD-10-PCS; 2019-03-29)
PROC: 3E0134Z Introduction of Serum, Toxoid and Vaccine into Subcutaneous Tissue, Percutaneous Approach (ICD-10-PCS; 2019-03-30)
PROC: 3E0234Z Introduction of Serum, Toxoid and Vaccine into Muscle, Percutaneous Approach (ICD-10-PCS; 2019-03-31)
DX: O14.94 Unspecified pre-eclampsia, complicating childbirth (principal); Z37.0 Single live birth; O13.4 Gestational [pregnancy-induced] hypertension without significant proteinuria, complicating childbirth; O99.214 Obesity complicating childbirth; O99.02 Anemia complicating childbirth; Z23 Encounter for immunization; O70.0 First degree perineal laceration during delivery
CPT/HCPCS: 36415; 80053; 80076; 81001; 82565; 83615; 83735; 84450; 84460; 84550; 85014; 85018; 85025; 85027; 86850; 86900; 86901; 90707; G0378; J2590; J3010; J3475; J3490; J7120